=== PATIENT | female | born 1995 | race African-American/Black ===

== ENCOUNTER 2018-10-31 09:14 | Emergency (ER) | payer MEDICAID ==
[~2018-10-31] VITALS: Ht 167.6 cm; Wt 64.0 kg
[2018-10-31 09:23] VITALS: BP 122/74
[2018-10-31] MEDS ORDERED: KETOROLAC 15MG/ML VIAL IV ONE (11:30)
[2018-10-31] MEDS ORDERED: KETOROLAC 30MG/ML VIAL IM ONE (11:30)
[2018-10-31] MEDS ORDERED: BACITRACIN 15GM TUBE TOP ONE (11:30)
[2018-10-31] MEDS ORDERED: DIAZEPAM 5 MG TABLET PO ONE (11:30)
[2018-10-31] MEDS ORDERED: BACITRACIN ZINC OINT UDPKT TOP NR (11:45)
== END 2018-10-31 12:00 | disposition home or self-care (01) ==
LOC: ER 09:55
DX: S16.1XXA Strain of muscle, fascia and tendon at neck level, initial encounter (principal); S60.811A Abrasion of right wrist, initial encounter; R51 Headache; M25.512 Pain in left shoulder; V89.2XXA Person injured in unspecified motor-vehicle accident, traffic, initial encounter; Y93.89 Activity, other specified; Y92.89 Other specified places as the place of occurrence of the external cause; Y99.8 Other external cause status
CPT/HCPCS: 70450; 71045; 72125; 73030; 73110; 81025; 96372; 99284; J1885